=== PATIENT | male | born 1985 | race African-American/Black ===

== ENCOUNTER 2022-04-21 10:49 | Emergency (ER) | payer SELFPAY ==
[2022-04-21] MEDS ORDERED: Ketorolac Tromethamine 30 MG/ML VIAL ONE (11:25)
== END 2022-04-21 12:05 | disposition home or self-care (01) ==
LOC: ERS 10:49
DX: S39.012A Strain of muscle, fascia and tendon of lower back, initial encounter (principal); I10 Essential (primary) hypertension; F17.290 Nicotine dependence, other tobacco product, uncomplicated; X50.9XXA Other and unspecified overexertion or strenuous movements or postures, initial encounter; Y92.039 Unspecified place in apartment as the place of occurrence of the external cause
CPT/HCPCS: 96372; 99283; J1885